=== PATIENT | male | born 1970 | race Caucasian/White ===

== ENCOUNTER 2021-12-04 14:31 | Emergency (ER) | payer MEDICAID ==
[~2021-12-04] VITALS: Ht 182.9 cm; Wt 108.9 kg
[2021-12-04 14:55] VITALS: BP_SYST 132
[2021-12-04] MEDS ORDERED: KETOROLAC TROMETHAMINE 60 MG/2 ML VIAL IM ONE (15:30)
[2021-12-04] MEDS ORDERED: ONDANSETRON 4 MG ODT TAB PO ONE (15:30)
[2021-12-04 15:51] LABS: BASOPHILS # (AUTO) 0.1 K/uL (0.0-0.2); BASOPHILS % (AUTO) 1.5 % (0.0-2.0); EOSINOPHILS # (AUTO) 0.3 K/uL (0.0-0.4); EOSINOPHILS % (AUTO) 3.6 % (0.0-4.0); HEMATOCRIT 39.8 % (36-54); HEMOGLOBIN 13.7 g/dL (14.0-18.0); LYMPHOCYTES # (AUTO) 2.1 K/uL (1.0-5.5); LYMPHOCYTES % (AUTO) 29.6 % (20.5-51.5); MEAN CORPUSCULAR HEMOGLOBIN 28 pg (27-31); MEAN CORPUSCULAR HGB CONC 35 % (32-36); MEAN CORPUSCULAR VOLUME 82 fL (79.0-98.0); MONOCYTES # (AUTO) 0.6 K/uL (0.0-1.0); MONOCYTES % (AUTO) 8.1 % (1.7-9.3); NEUTROPHILS % (AUTO) 57.2 % (40.0-70.0); PLATELET COUNT (AUTO) 222 K/uL (130-430); RED BLOOD CELL COUNT(AUTO) 4.86 MIL/uL (4.2-6.2); RED CELL DISTRIBUTION WIDTH 13.2 % (9.0-15.0); WHITE BLOOD COUNT (AUTO) 6.9 K/uL (4.8-10.8)
[2021-12-04 15:58] LABS: ANION GAP 7 (5-15); CHLORIDE 103 mmol/L (98-107); CREATININE 0.89 mg/dL (0.55-1.30); GLUCOSE 86 mg/dL (70-99); POTASSIUM 3.8 mmol/L (3.5-5.1); SODIUM SERUM 140 mmol/L (136-145); UREA NITROGEN, BLOOD 13 mg/dL (8-21)
[2021-12-04 15:59] LABS: GFR AFRICAN AMERICAN 116 mL/min (>90)
[2021-12-04 16:03] LABS: ALANINE AMINOTRANSFERASE 41 U/L (12-78); ALBUMIN 3.2 g/dL (3.4-4.8); AMYLASE 33 U/L (0-100); ASPARTATE AMINOTRANSFERASE 22 U/L (10-37); LACTATE DEHYDROGENASE 131 U/L (85-227); LIPASE 85 U/L (73-393); TOTAL BILIRUBIN 0.6 mg/dL (0.0-1.0)
[2021-12-04 16:04] LABS: C-REACTIVE PROTEIN QUANT < 0.2 mg/dL (0-0.5)
[2021-12-04] MEDS ORDERED: IBUP-1971 PO ×2 (18:56→18:57)
[2021-12-04] MEDS ORDERED: ONDA-8 TL ×2 (18:56→18:57)
[2021-12-04 19:11] VITALS: BP_SYST 123
== END 2021-12-04 19:11 | disposition home or self-care (01) ==
LOC: SED 14:31
DX: R11.2 Nausea with vomiting, unspecified (principal); R10.30 Lower abdominal pain, unspecified; Z79.899 Other long term (current) drug therapy
CPT/HCPCS: 99285; 74176; 80053; 82150; 83615; 83690; 85025; 86140; 36415; 76376; 96372; 83605; Q0162; J1885

== ENCOUNTER 2021-12-22 08:43 | Emergency (ER) | payer MEDICAID ==
[~2021-12-22] VITALS: Ht 182.9 cm; Wt 108.9 kg
[~2021-12-22 08:43] MED LIST: IBUP-1971 PO; ONDA-8 TL
[2021-12-22 08:53] VITALS: BP_SYST 141
--- NOTE | 2021-12-22 08:57 | NUR ---
Patient to ER bed 3 to gown for evaluation. Side rails up. Report given to AMY HALEY
--- NOTE | 2021-12-22 08:57 | NUR ---
RECEIVED PT FROM [facility]. PT HAS C/O OF LEFT UPPER ABDOMINAL PAIN 11/20. PT STATES HE WAS DX WITH DIVERTICULITIS ON WEEK AGO AND HAS BEEN TAKING ABT FOR IT BUT MISSED LAST DOSE. PT DENIES ANY ADDITIONAL MED HX. AAOX4. RESP E/U. ON R/A. ABDOMEN SOFT, ROUND, MILD DISTENTION. PT HAS C/O NAUSEA AND VOMITING. MOTHER AT BEDSIDE, SIDERAILS UP X2.
--- NOTE | 2021-12-22 09:04 | NUR ---
DR. OKEEFE AT BEDSIDE TO ASSESS PT.
[2021-12-22] MEDS ORDERED: KETOROLAC TROMETHAMINE 30 MG VIAL IVP ONE (09:15)
[2021-12-22] MEDS ORDERED: NACL 0.9% 1,000 ML IV ONE (09:15)
--- NOTE | 2021-12-22 09:20 | NUR ---
CT SCAN COMPETED.
[2021-12-22 09:22] LABS: BASOPHILS # (AUTO) 0.1 K/uL (0.0-0.2); BASOPHILS % (AUTO) 0.8 % (0.0-2.0); EOSINOPHILS # (AUTO) 0.3 K/uL (0.0-0.4); EOSINOPHILS % (AUTO) 3.6 % (0.0-4.0); HEMOGLOBIN 14.5 g/dL (14.0-18.0); LYMPHOCYTES # (AUTO) 1.9 K/uL (1.0-5.5); LYMPHOCYTES % (AUTO) 22.5 % (20.5-51.5); MEAN CORPUSCULAR HEMOGLOBIN 29 pg (27-31); MEAN CORPUSCULAR HGB CONC 35 % (32-36); MEAN CORPUSCULAR VOLUME 82 fL (79.0-98.0); MONOCYTES # (AUTO) 0.7 K/uL (0.0-1.0); MONOCYTES % (AUTO) 7.9 % (1.7-9.3); NEUTROPHILS # (AUTO) 5.5 K/uL (1.8-7.7); NEUTROPHILS % (AUTO) 65.2 % (40.0-70.0); PLATELET COUNT (AUTO) 248 K/uL (130-430); RED BLOOD CELL COUNT(AUTO) 5.02 MIL/uL (4.2-6.2); RED CELL DISTRIBUTION WIDTH 13.1 % (9.0-15.0); WHITE BLOOD COUNT (AUTO) 8.4 K/uL (4.8-10.8)
[2021-12-22 09:30] LABS: BILIRUBIN,URINE NEGATIVE (NEGATIVE); BLOOD, URINE NEGATIVE (NEGATIVE); CLARITY/URINE CLEAR (CLEAR); COLOR,URINE YELLOW (YELLOW); GLUCOSE,URINE NEGATIVE (NEGATIVE); KETONES,URINE NEGATIVE (NEGATIVE); LEUKOCYTE ESTERASE ,URINE NEGATIVE (NEGATIVE); NITRITE, URINE NEGATIVE (NEGATIVE); PROTEIN URINE NEGATIVE (NEGATIVE); UROBILINOGEN,URINE 0.2 (0.2-1.0)
[2021-12-22 09:30] LABS: CALCIUM 9.3 mg/dL (8.4-11.0); CREATININE 0.84 mg/dL (0.55-1.30); POTASSIUM 4.8 mmol/L (3.5-5.1)
[2021-12-22 09:36] LABS: ALBUMIN 3.7 g/dL (3.4-4.8); TOTAL BILIRUBIN 0.7 mg/dL (0.0-1.0)
[2021-12-22] MEDS ORDERED: DICY10SO PO (10:27)
[2021-12-22] MEDS ORDERED: IBUP-1969 PO (10:27)
[2021-12-22] MEDS ORDERED: ONDA-8 TL (10:31)
[2021-12-22 10:50] VITALS: BP_SYST 128
--- NOTE | 2021-12-22 10:55 | NUR ---
Patient given written and verbal discharge instructions and verbalizes understanding. ER MD discussed with patient the results and treatment provided. Patient in stable condition. ID arm band removed. IV catheter removed intact and dressing applied, no active bleeding. Rx of DICYCLOMINE AND IBUPROFEN given. Patient educated on pain management and to follow up with PMD. Pain Scale 0/10. Opportunity for questions provided and answered. Medication side effect fact sheet provided.
== END 2021-12-22 10:55 | disposition home or self-care (01) ==
LOC: SED 08:43
DX: R10.32 Left lower quadrant pain (principal); Z79.899 Other long term (current) drug therapy
CPT/HCPCS: 99285; 74176; 96374; 80053; 85025; 36415; 93005; 76376; 81003; J1885

== ENCOUNTER 2021-12-25 03:19 | Emergency (ER) | payer MEDICAID ==
[~2021-12-25] VITALS: Ht 182.9 cm; Wt 108.9 kg
[~2021-12-25 03:19] MED LIST changes: +DICY10SO PO; +IBUP-1969 PO
[2021-12-25 03:25] VITALS: BP_SYST 135
--- NOTE | 2021-12-25 03:28 | NUR ---
DIAGNOSED WITH DIVERTICULITIS, VOMITING X 1 DAY, ABDOMINAL PAIN X 3 DAYS. NO RELIEF IN SYMPTOMS SINCE LAST ADMISSION.
--- NOTE | 2021-12-25 03:35 | NUR ---
PATIENT PLACED IN ROOM 8, WAITING TO BE SEEN. NURSE AWARE.
[2021-12-25] MEDS ORDERED: NACL 0.9% 1,000 ML IV ONE (03:45)
[2021-12-25] MEDS ORDERED: MORPHINE 4 MG INJ. 4 MG/ML VIAL IVP ONE (03:45)
[2021-12-25] MEDS ORDERED: PROCHLORPERAZINE EDISYLATE 10 MG/2 ML VIAL IVP ONE (03:45)
--- NOTE | 2021-12-25 04:05 | NUR ---
AT BEDSIDE. PT ON NURSE PRIVATE DUTY. VSS. NO SIGNS OF ACUTE DISTRESS AT THIS TIME. PT C/O SHARP ABDOMINAL PAIN, N/V X 1 DAY. PT IS AMBULATORY WITH STEADY GAIT. PT SPEAKING FULL SENTENCES.
[2021-12-25 04:20] LABS: EOSINOPHILS # (AUTO) 0.2 K/uL (0.0-0.4); EOSINOPHILS % (AUTO) 5.4 % (0.0-4.0); HEMATOCRIT 40.1 % (36-54); HEMOGLOBIN 14.3 g/dL (14.0-18.0); LYMPHOCYTES # (AUTO) 1.2 K/uL (1.0-5.5); LYMPHOCYTES % (AUTO) 25.9 % (20.5-51.5); MEAN CORPUSCULAR HEMOGLOBIN 29 pg (27-31); MEAN CORPUSCULAR HGB CONC 36 % (32-36); MEAN CORPUSCULAR VOLUME 80 fL (79.0-98.0); MONOCYTES # (AUTO) 0.7 K/uL (0.0-1.0); MONOCYTES % (AUTO) 15.4 % (1.7-9.3); NEUTROPHILS # (AUTO) 2.4 K/uL (1.8-7.7); NEUTROPHILS % (AUTO) 52.3 % (40.0-70.0); PLATELET COUNT (AUTO) 183 K/uL (130-430); RED BLOOD CELL COUNT(AUTO) 5.01 MIL/uL (4.2-6.2); RED CELL DISTRIBUTION WIDTH 13.1 % (9.0-15.0); WHITE BLOOD COUNT (AUTO) 4.5 K/uL (4.8-10.8)
[2021-12-25 04:26] LABS: CALCIUM 8.9 mg/dL (8.4-11.0); CREATININE 0.85 mg/dL (0.55-1.30); POTASSIUM 4.2 mmol/L (3.5-5.1)
[2021-12-25 04:32] LABS: ALBUMIN 3.3 g/dL (3.4-4.8); TOTAL BILIRUBIN 0.6 mg/dL (0.0-1.0)
[2021-12-25] MEDS ORDERED: PHE25 PO (06:08)
[2021-12-25] MEDS ORDERED: METR-154 PO (06:08)
[2021-12-25] MEDS ORDERED: CIPR500T5 PO (06:08)
[2021-12-25] MEDS ORDERED: HYDR-3917 PO (06:08)
[2021-12-25 06:17] VITALS: BP_SYST 112
--- NOTE | 2021-12-25 06:20 | NUR ---
PT D/C IN STABLE CONDITION PT ADVISED TO FOLLOW UP WITH PCP PT ADVISED TO RETURN TO THE ED IF S/S WORSEN PT VERBALIZED UNDERSTANDING OF DC TEACHINGS PT AMBULATORY WITH STEADY GAIT VSS NAD
== END 2021-12-25 06:20 | disposition home or self-care (01) ==
LOC: SED 03:19
DX: R10.32 Left lower quadrant pain (principal); R11.10 Vomiting, unspecified; F17.200 Nicotine dependence, unspecified, uncomplicated; Z79.899 Other long term (current) drug therapy
CPT/HCPCS: 99284; 96374; 96361; 96375; 80053; 83690; 85025; 36415; 74021; J0780; J2270; J7030